=== PATIENT | female | born 1980 | race Caucasian/White ===

== ENCOUNTER → 2018-05-28 19:19 | Outpatient (CLI) | payer SELFPAY ==
[2018-06-01 12:59] LABS: HPV APTIMA, High Risk Negative (Negative)
== END ==
PROVIDERS: Family Provider Family Medicine; PCP Family Medicine; Visit Provider Obstetrics & Gynecology
DX: Z12.4 Encounter for screening for malignant neoplasm of cervix (principal); N93.0 Postcoital and contact bleeding
CPT/HCPCS: 87070; 87077; 87186; 87205; 88175; G0145

== ENCOUNTER → 2019-09-24 07:44 | Outpatient (CLI) | payer OTHER, SELFPAY ==
[2019-09-17 08:29] VITALS: BMI 32.8
--- NOTE | 2019-09-24 08:09 | US_ITS ---
STUDY: ULTRASOUND OF THE FEMALE PELVIS - COMPLETE REASON FOR EXAM: Female, 38 years old. GENERAL PELVIC PAIN X 1MONTH -- HX OF C SECTION LMP: August 09, 2019. TECHNIQUE: Transabdominal and Transvaginal TECHNICAL QUALITY: Adequate. COMPARISON: None. FINDINGS: The uterus is anteverted and is in a midline position. The uterus measures 9.5 cm x 5.6 cm x 3.9 cm. Normal uterine cervix. The endometrium measures 10 mm in thickness, and is . There is no demonstrated endometrial mass. There is no demonstrated myometrial mass. I.U.D. - The patient does not have an I.U.D. The right ovary is visualized. The right ovary measures 2.3 cm x 2.3 cm x 1.9 cm. There is no right ovarian cyst or ovarian mass. There is no visualized right adnexal mass or complex lesion. There is normal arterial and normal venous vascularity. The left ovary is visualized. The left ovary measures 3.7 cm x 3 cm x 2.9 cm. There is a 2.3 cm x 2.2 cm x 1.8 cm left ovarian cyst. There is no visualized left adnexal mass or complex lesion. There is normal arterial and normal venous vascularity. There is no fluid in the cul-de-sac. Polycystic ovary disease: No. US/Pelvic (Non ) IMPRESSION: 2.3 cm x 2.2 cm x 1.8 cm left ovarian cyst. Electronically Signed: Dimitri Neil, at 13:58 EST , Service support ,
--- NOTE | 2019-09-24 08:09 | US_ITS ---
STUDY: ULTRASOUND OF THE FEMALE PELVIS - COMPLETE REASON FOR EXAM: Female, 38 years old. GENERAL PELVIC PAIN X 1MONTH -- HX OF C SECTION LMP: August 09, 2019. TECHNIQUE: Transabdominal and Transvaginal TECHNICAL QUALITY: Adequate. COMPARISON: None. FINDINGS: The uterus is anteverted and is in a midline position. The uterus measures 9.5 cm x 5.6 cm x 3.9 cm. Normal uterine cervix. The endometrium measures 10 mm in thickness, and is . There is no demonstrated endometrial mass. There is no demonstrated myometrial mass. I.U.D. - The patient does not have an I.U.D. The right ovary is visualized. The right ovary measures 2.3 cm x 2.3 cm x 1.9 cm. There is no right ovarian cyst or ovarian mass. There is no visualized right adnexal mass or complex lesion. There is normal arterial and normal venous vascularity. The left ovary is visualized. The left ovary measures 3.7 cm x 3 cm x 2.9 cm. There is a 2.3 cm x 2.2 cm x 1.8 cm left ovarian cyst. There is no visualized left adnexal mass or complex lesion. There is normal arterial and normal venous vascularity. There is no fluid in the cul-de-sac. Polycystic ovary disease: No. US/Transvaginal Non- IMPRESSION: 2.3 cm x 2.2 cm x 1.8 cm left ovarian cyst. Electronically Signed: Dimitri Neil, at 13:58 EST , Service support ,
[2019-09-24 09:42] LABS: Absolute Lymphocyte Count 1.86 X10^3/uL (0.83-4.51); Absolute Neutrophil Count 3.9 X10^3/uL (2.0-7.7); Basophil# 0.02 X10^3/uL; Basophil% 0.3 % (0-1); Eosinophil# 0.15 X10^3/uL; Eosinophils% 2.3 % (0-5); Hemoglobin 12.5 g/dL (12.0-15.0); Lymphocyte # 1.86 X10^3/ul (4.0); Lymphocyte % 29.1 % (19-41); Mean Corp Hgb Conc 32.9 g/dL (32-36); Mean Corpuscular Volume 85.2 fL (81-99); Mean Platelet Vol. 11.7 fl (6.2-12.0); Monocyte# 0.46 X10^3/uL; Monocyte% 7.2 % (0-10); NRBC Flagged by Analyzer 0 % (0-5); Neutrophil # 3.87 X10^3/uL (2.7-7.7); Neutrophil % 60.6 % (47-70); Platelet Count 213 K/mm3 (150-450); RBC Distribution Width CV 12.4 % (11.6-14.6); RBC Distribution Width SD 38.3 fl (35.1-43.9); Red Blood Count 4.46 M/mm3 (4.2-5.4); White Blood Count 6.4 K/mm3 (4.4-11.0)
[2019-09-24 10:14] LABS: Thyroid Stim Hormone (TSH) 3.08 uIU/mL (0.358-3.74)
== END ==
PROVIDERS: Family Provider Family Medicine; PCP Family Medicine; Referring Provider Obstetrics & Gynecology; Visit Provider Obstetrics & Gynecology
DX: R10.2 Pelvic and perineal pain (principal); N93.9 Abnormal uterine and vaginal bleeding, unspecified
CPT/HCPCS: 36415; 76830; 76856; 84443; 85025; 93976

== ENCOUNTER → 2020-10-20 10:19 | Outpatient (CLI) | payer OTHER, SELFPAY ==
[2019-09-17 08:29] VITALS: BMI 32.8
--- NOTE | 2020-10-20 10:21 | STEWCON_ITS ---
Reason For Study: Chest Pain Stress Results Protocol: Nikolay Protocol WITH DEFINITY Maximum Predicted HR: 182 bpm Target HR: 155 bpm % Maximum Predicted HR: 90 % DurationHeart Rate Stage (mm:ss) (bpm) BP Comment Baseline 68 128/72No Chest Pain; 3 ML Diluted Definity Nikolay Protocol Stage I 3:00 109 124/78No Chest Pain Nikolay Protocol Stage II 3:00 127 162/70No Chest Pain Nikolay Protocol Stage III 3:00 153 186/72No Chest Pain; Mild Dyspnea Nikolay Protocol Stage IV 0:45 164 / Mild Chest Pressure; Mild Dyspnea Recovery 85 124/70No Chest Pain; No Dyspnea Stress Duration: 9:45 mm:ss Maximum Stress HR: 164 bpm METS: 12 Baseline Echocardiogram Findings Stress Echo Wall motion Data Resting WM Intermediate WM Stress WM Resting Wall Motion Wall Motion Stress All segments Normal. All segments Hyperkinetic. Ejection Fraction 55 %. Ejection Fraction 70 %. Stress Results Heart rate response: Appropriate Blood pressure response: Normal resting blood pressure-appropriate response Arrhythmias: There was a rare PVC and an isolated ventricular couplet during exercise Functional capacity: Good Stopped: Secondary to dyspnea. EKG Data Baseline ECG: Normal sinus rhythm. Peak exercise ECG: No obvious ECG changes. Symptoms with Stress The patient noted mild chest discomfort at peak exercise with spontaneous resolution in recovery. Interpretation Summary 1. Contrast injection performed 2. Negative (adequate) stress echocardiogram 3. Negative (adequate) ECG exercise tolerance test Ordering Physician: Yanique Zarate Referring Physician: Roldan Smith Performed By: Eze Cam RCS
== END ==
LOC: CVS 10:21
PROVIDERS: PCP Family Medicine; Referring Provider Family Medicine; Visit Provider Family Medicine
DX: R07.9 Chest pain, unspecified (principal)
CPT/HCPCS: 93017; 93350; Q9957; A4216; C8928

== ENCOUNTER 2021-04-07 16:06 | Outpatient (CLI) | payer OTHER, SELFPAY ==
[2019-09-17 08:29] VITALS: BMI 32.8
--- NOTE | 2021-04-07 16:24 | US_ITS ---
STUDY: FIRST TRIMESTER OBSTETRICAL ULTRASOUND REASON FOR EXAM: Female, 40 years old. Viability. well-being. LMP: 02/05/2021. TECHNIQUE: Transvaginal TECHNICAL QUALITY: Adequate. PRIOR ULTRASOUND: None. FINDINGS: There is visualization of a single gestational sac in a normal intrauterine position. The mean sac diameter (MSD) measures 9 mm, indicating an estimated gestational age (EGA) of 5 weeks, 4 days. The gestational sac shape is within normal limits. There is a visualized yolk sac. The yolk sac measures 4.5 mm. The placenta is non-visualized. There is visualization of a live embryo. The crown-rump length (CRL) measures 4.1 mm, indicating an estimated gestational age (EGA) of 6 weeks, 2 days. There is demonstrated cardiac activity with a heart rate of 90 bpm. The estimated gestation age (EGA) by LMP is 8 weeks, 5 days. The estimated date of delivery (ALTAF) by LMP is 11/12/2021. The estimated gestation age (EGA) by US is 5 weeks, 6 days. The estimated date of delivery (ALTAF) by US is 12/02/2021. The uterus measures 9.4 cm x 5.6 x 4.5 cm. There is no demonstrated uterine fibroid. The cervix is closed. The right ovary measures 3.5 cm x 3 cm x 2.9 cm. There is a 2.3 cm x 2.3 cm x 1.7 cm corpus luteum cyst. There is no visualized right adnexal mass or complex lesion. The left ovary measures 2.6 cm x 1 cm x 1.7 cm. There is no left ovarian cyst. There is no visualized left adnexal mass or complex lesion. There is no fluid in the cul de sac. US/Transvaginal w/Preg US IMPRESSION: Live intrauterine gestation with a mean gestational age of 5 weeks and 6 days. 2.3 cm x 2.3 cm x 1.7 cm right corpus luteum cyst. Electronically Signed: Dimitri Neil MD at 21:44 EDT , Service support ,
--- NOTE | 2021-04-07 17:30 | NURSING ---
1606 pt received on floor for blood draw for rhogam injection. 1620 pt sent to u/s for her appt. and to check back for rhogam injection. 1725 u/s called stating pt not waiting for rhogam injection states has to get back to work. Dr paz notified.
--- NOTE | 2021-04-08 09:57 | OB.TRI.PN ---
Progress Notes Date of Service: 04/07/21 Progress Note: Patient presents for injection only visit for rhogam. T&S done. Rhogam administered. Laboratory Studies: Laboratory Tests 04/07/21 Range/Units 16:18 Blood Type A NEGATIVE Antibody Screen NEGATIVE Charges/Coding Procedures Urinary/Genital [id number]: No Charge
== END 2021-04-07 16:20 | disposition home or self-care (01) ==
LOC: WPOUT 16:07 → WP 16:08
PROVIDERS: PCP Family Medicine; Visit Provider Obstetrics & Gynecology
DX: Z29.13 Encounter for prophylactic Rho(D) immune globulin (principal)
CPT/HCPCS: 36415; 76817; 86850; 86900; 86901

== ENCOUNTER → 2021-04-15 | Outpatient (CLI) | payer OTHER, SELFPAY ==
[2021-04-15 09:41] VITALS: BMI 32.5
[2021-04-15 13:57] LABS: Amphetamine Urine VISTA NEGATIVE (<1000 ng/mL); Barbiturate Urine VISTA NEGATIVE (< 200 ng/mL); Benzodiazepine Urine VISTA NEGATIVE (< 200 ng/mL); Cocaine Urine VISTA NEGATIVE (< 300 ng/mL); Ecstacy Urine VISTA NEGATIVE (< 500 ng/mL); Methadone Urine VISTA NEGATIVE (< 300 ng/mL); PCP Urine VISTA NEGATIVE (< 25 ng/mL); THC Urine VISTA NEGATIVE (< 50 ng/mL); Vista UDS pH Range 6
== END | disposition home or self-care (01) ==
PROVIDERS: PCP Family Medicine; Referring Provider Obstetrics & Gynecology; Visit Provider Obstetrics & Gynecology
DX: Z34.90 Encounter for supervision of normal pregnancy, unspecified, unspecified trimester (principal)
CPT/HCPCS: 80307; 87086; 87088

== ENCOUNTER → 2021-07-23 13:59 | Outpatient (CLI) | payer OTHER, SELFPAY ==
[2021-07-23 15:30] LABS: hCG Titer Quant., Serum 1793 mIU/mL (1-3)
== END ==
LOC: LAB 14:00
PROVIDERS: PCP Family Medicine; Referring Provider Obstetrics & Gynecology; Visit Provider Obstetrics & Gynecology
DX: O36.80X0 Pregnancy with inconclusive fetal viability, not applicable or unspecified (principal); Z3A.00 Weeks of gestation of pregnancy not specified; Z87.59 Personal history of other complications of pregnancy, childbirth and the puerperium
CPT/HCPCS: 36415; 84702

== ENCOUNTER → 2021-07-26 14:42 | Outpatient (CLI) | payer OTHER, SELFPAY ==
[2021-07-26 16:20] LABS: hCG Titer Quant., Serum 4578 mIU/mL (1-3)
== END ==
LOC: LAB 14:43
PROVIDERS: PCP Family Medicine; Referring Provider Obstetrics & Gynecology; Visit Provider Obstetrics & Gynecology
DX: O36.80X0 Pregnancy with inconclusive fetal viability, not applicable or unspecified (principal); Z3A.00 Weeks of gestation of pregnancy not specified; Z87.59 Personal history of other complications of pregnancy, childbirth and the puerperium
CPT/HCPCS: 36415; 84702

== ENCOUNTER → 2021-08-06 12:19 | Outpatient (CLI) | payer OTHER, SELFPAY ==
--- NOTE | 2021-08-06 12:26 | US_ITS ---
STUDY: FIRST TRIMESTER OBSTETRICAL ULTRASOUND REASON FOR EXAM: Female, 40 years old viability LMP: 06/18/2021. TECHNIQUE: Transvaginal TECHNICAL QUALITY: Adequate. PRIOR ULTRASOUND: None. FINDINGS: There is visualization of a single gestational sac in a normal intrauterine position. The mean sac diameter (MSD) measures 1.9 cm, indicating an estimated gestational age (EGA) of 6 weeks, 6 days. The gestational sac shape is within normal limits. There is a visualized yolk sac. The yolk sac measures 5.4 mm. The placenta is non-visualized. There is visualization of a live embryo. The crown-rump length (CRL) measures 9.4 mm, indicating an estimated gestational age (EGA) of 7 weeks, 0 days. There is demonstrated cardiac activity with a heart rate of 150 bpm. The estimated gestation age (EGA) by LMP is 7 weeks, 0 days. The estimated date of delivery (ALTAF) by LMP is 03/25/2022. The estimated gestation age (EGA) by US is 6 weeks, 6 days. The estimated date of delivery (ALTAF) by US is 03/26/2022. The uterus measures 11.3 cm x 6.6 x 5.4 cm. There is no demonstrated uterine fibroid. The cervix is closed. There is evidence of a 1.8 cm x 2 cm x 0.6 cm subchorionic bleed. The right ovary measures 2.4 cm x 1.6 cm x 2.1 cm. There is no right ovarian cyst. There is no visualized right adnexal mass or complex lesion. The left ovary measures 3.2 cm x 2 cm x 1.7 cm. There is no left ovarian cyst. There is no visualized left adnexal mass or complex lesion. There is no fluid in the cul de sac. US/Transvaginal w/Preg US IMPRESSION: Single live intrauterine gestation with a mean gestational age of 6 weeks and 6 days. 1.8 cm x 2 cm x 0.6 cm subchorionic bleed. Electronically Signed: Dimitri Neil MD at 14:10 EST , Service support ,
== END ==
PROVIDERS: PCP Family Medicine; Referring Provider Obstetrics & Gynecology; Visit Provider Obstetrics & Gynecology
DX: O36.80X0 Pregnancy with inconclusive fetal viability, not applicable or unspecified (principal); Z3A.01 Less than 8 weeks gestation of pregnancy; Z87.59 Personal history of other complications of pregnancy, childbirth and the puerperium
CPT/HCPCS: 76817

== ENCOUNTER 2021-08-19 22:07 | Emergency (ER) | payer OTHER, SELFPAY ==
[2021-08-19 22:08] VITALS: BP 157/70; PULSE 89; RESP 16; TEMP 36.4; O2SAT 99; BMI 34.6
[2021-08-19 22:14] VITALS: O2SAT 98
--- NOTE | 2021-08-19 22:36 | EKG12_ITS ---
Test Reason : SOB Blood Pressure : / mmHG Vent. Rate : 081 BPM Atrial Rate : 081 BPM P-R Int : 152 ms QRS Dur : 094 ms QT Int : 376 ms P-R-T Axes : 029 037 024 degrees QTc Int : 436 ms Normal sinus rhythm Normal ECG Confirmed by YOANDY DANIEL, KYLIE ([id number]), newspaper editor managing MICHAEL MACIAS ([id number]) on 08/23/2021 9:52:27 AM Referred By: PANCHO Confirmed By:CHARLOTTE PITT MD
[2021-08-19] MEDS: 0.9% Normal Saline 1,000 ML 999 ML IV (22:45)
[2021-08-19] MEDS: dexAMETHasone 10 MG/ML Vial IV (22:45)
[2021-08-19 22:50] LABS: Absolute Lymphocyte Count 0.63 X10^3/uL (0.83-4.51); Absolute Neutrophil Count 1.6 X10^3/uL (2.0-7.7); Eosinophil# 0.01 X10^3/uL; Eosinophils% 0.4 % (0-5); Hematocrit 34.5 % (37-47); Lymphocyte # 0.63 X10^3/ul (0.83-4.51); Lymphocyte % 26.1 % (19-41); Mean Corp Hgb Conc 34.8 g/dL (32-36); Mean Corpuscular Hgb 29.4 pg (27.0-32.0); Mean Corpuscular Volume 84.6 fL (81-99); Mean Platelet Vol. 11.4 fl (6.2-12.0); Monocyte# 0.18 X10^3/uL; Monocyte% 7.5 % (0-10); NRBC Flagged by Analyzer 0 % (0-5); Neutrophil # 1.58 X10^3/uL (2.7-7.7); Neutrophil % 65.6 % (47-70); Platelet Count 105 K/mm3 (150-450); RBC Distribution Width CV 12.8 % (11.6-14.6); RBC Distribution Width SD 39.6 fl (35.1-43.9); Red Blood Count 4.08 M/mm3 (4.2-5.4); White Blood Count 2.4 K/mm3 (4.4-11.0)
[2021-08-19 23:02] LABS: Anion Gap 8 (5-15); BUN 8 mg/dL (7-18); BUN/Creat Ratio 12.6 RATIO (10-20); Calcium,Total 8.7 mg/dL (8.5-10.1); Chloride 105 mmol/L (98-107); Creatinine, Serum 0.64 mg/dL (0.55-1.02); EST Glomerular Filtration Rate 110 mL/min (>60); Est Glom Filt Rate - Afr Amer 133 mL/min (>60); Estimated Creatinine Clearance 114.76 ml/min; Glucose 157 mg/dL (74-106); Magnesium 1.8 mg/dL (1.6-2.6); Potassium 3.5 mmol/L (3.5-5.1); Sodium Level 135 mmol/L (136-145)
[2021-08-20 00:15] VITALS: RESP 20; O2SAT 97
--- NOTE | 2021-08-20 00:28 | EDS_ITS ---
HPI History of Present Illness Chief Complaint: Shortness of Breath Narrative Narrative: Pt is a female who is about 8 weeks . She reports her kids have been sick and she has had symptoms for about 7 days. She states that she had an outpatient test that was positive for covid. She states that she is feeling more short of breath today and therefore comes to the ED for evaluation [facility] Medical History AMA (advanced maternal age) multigravida 35+ Asthma Depression HTN (hypertension) Rh negative state in antepartum period Home Medications fluoxetine 40 mg capsule 40 mg PO DAILY 04/05/21 [History Last Taken Unknown] prenat.vits,steve,syh-yfod-fpvpk 1 tab PO DAILY 04/05/21 [History Last Taken Unknown] albuterol sulfate [ProAir HFA] 2 puff INHALATION Q6H PRN #8.5 g 08/20/21 [Rx Last Taken Unknown] dexamethasone [Decadron] 6 mg PO DAILY 10 Days #10 tab 08/20/21 [Rx Last Taken Unknown] Allergy/AdvReac Type Severity Reaction Status Date / Time No Known Allergies Allergy Verified 08/19/21 22:07 Family History Father Hypertension Cancer lung-smoker Hyperlipidemia Mother Hypertension Arthritis Sister Seizures Surgical History delivery delivered History of Social History adopted: No household members: spouse and children number of children: 2 current occupational status: employed current occupation: [employer] pets and animals: Yes pets and animals: dog(s) sexually active: Yes Smoking Status: Never smoker alcohol intake: current details: social; not while substance use type: does not use caffeine: Yes what type of physical activity do you participate in: running frequency: 3-4 times per week seatbelt use: always do you feel safe at home: Yes additional social history: [employer] Patient works at [employer] in [facility] ROS ED Constitutional Constitutional ED: Reports chills and fever(s) ENT ENT ED: Reports rhinorrhea and sore throat Cardiovascular Cardiovascular: Denies chest pain Respiratory/Chest Respiratory/Chest: Reports cough, dyspnea and sputum Gastrointestinal Gastrointestinal: Reports nausea; Denies abdominal pain, diarrhea or vomiting Genitourinary Genitourinary ED: Denies dysuria Musculoskeletal Musculoskeletal: Reports myalgias Integumentary Denies rash Neurologic Neurologic: Denies headache(s) Hematologic/Lymphatic Hematologic/Lymphatic: Denies easy bleeding or easy bruising EXAM Physical Exam Const Vital Signs: 08/19/21 22:08 08/19/21 22:53 08/20/21 00:15 Temperature 97.5 F L Temperature Source Temporal Pulse Rate 89 Respiratory Rate 16 20 H Respiratory Effort Short of Breath Blood Pressure 157/70 H Blood Pressure Mean 99 Pulse Ox 99 97 Oxygen Delivery Method Room Air Room Air 08/20/21 00:39 Temperature Temperature Source Pulse Rate 74 Respiratory Rate 20 H Respiratory Effort Blood Pressure 150/60 H Blood Pressure Mean Pulse Ox 95 Oxygen Delivery Method Positive well nourished and well developed General Appearance ED: well developed HEENT Reports moist mucous membranes Eyes PERRL and EOMs intact bilaterally Neck supple Neck Narrative: + anterior cervical adenopathy Resp Resp Narrative: BS are diminished throughout with diffuse wheeze and rhonchi in the bases. Pt has mild accessory muscle use and tachypnea Cardio regular rate and regular rhythm GI normal to inspection, nondistended, normoactive bowel sounds, non-tender, non- distended and no masses Auscultation: normoactive bowel sounds Palpation: soft Extremity normal to inspection Extremity Narrative: Negative Dony's sign B/L Neuro oriented x3 and CN's II-XII intact bilaterally Sensorium / Orientation: alert Motor Exam: strength 5/5 throughout Psych mental status grossly normal Skin no rashes or lesions noted MDM MDM MDM Narrative Medical decision making narrative: Pt presented afebrile and without any hypoxia or severe resp distress. She had a positive outpatient covid test so i felt no need to repeat this. She also reports that her PCP is setting her up for monoclonal antibodies. basic blood work was obtained and display changes consistent with covid. Pt was ambulated in the room and had no desaturation. Therefore, as patient is not hypoxic at rest or with exertion I feel she can be discharged and treated on an outpatient basis Lab Data Attestation: I reviewed the patient's lab results. Labs: Laboratory Results - last 24 hr 08/19/21 08/19/21 22:40 22:40 WBC 2.4 L RBC 4.08 L Hgb 12.0 Hct 34.5 L MCV 84.6 MCH 29.4 MCHC 34.8 RDW Std Deviation 39.6 RDW Coeff of Bob 12.8 Plt Count 105 L MPV 11.4 Immature Gran % (Auto) 0.400 Neut % (Auto) 65.6 Lymph % (Auto) 26.1 Travis % (Auto) 7.5 Eos % (Auto) 0.4 Baso % (Auto) 0.0 Absolute Neuts (auto) 1.6 L Absolute Lymphs (auto) 0.63 L Nucleated RBC % 0 Sodium 135 L Potassium 3.5 Chloride 105 Carbon Dioxide 22.0 Anion Gap 8 BUN 8 Creatinine 0.64 Estim Creat Clear Calc 114.76 Est GFR (MDRD) Af Amer 133 Est GFR (MDRD) Non-Af 110 BUN/Creatinine Ratio 12.6 Glucose 157 H Calcium 8.7 Magnesium 1.8 Discharge Plan Triage Chief Complaint: Shortness of Breath ED Provider: Kevin Gilliland Dx/Rx/DC Orders Clinical Impression: COVID-19 Instructions: Coronavirus Disease 2019 (COVID-19): Caring for Yourself or Others Prescriptions: New dexamethasone [Decadron] 6 mg tablet 6 mg PO DAILY 10 Days Qty: 10 RF: 0 albuterol sulfate [ProAir HFA] 90 mcg/actuation HFA aerosol inhaler 2 puff inhalation Q6H PRN (Reason: shortness of breath or wheezing) Qty: 8.5 RF: 0 No Action prenat.vits,steve,now-zzol-htbgp Tablet 1 tab PO DAILY RF: 0 fluoxetine [Prozac] 40 mg capsule 40 mg PO DAILY RF: 0 Primary Care Provider: Yanique Zarate Referrals: Yanique Zarate MD [Primary Care Provider] - Disposition Disposition: Home, Self Care Discharge Date/Time: 08/20/21 00:40
[2021-08-20 00:39] VITALS: BP 150/60; PULSE 74; RESP 20; O2SAT 95
== END 2021-08-20 00:40 | disposition home or self-care (01) ==
PROVIDERS: Emergency Provider Emergency Medicine; PCP Family Medicine
DX: O98.511 Other viral diseases complicating pregnancy, first trimester (principal); O99.341 Other mental disorders complicating pregnancy, first trimester; U07.1 COVID-19; F32.A Depression, unspecified; Z3A.08 8 weeks gestation of pregnancy; Z79.899 Other long term (current) drug therapy
CPT/HCPCS: 80048; 83735; 85025; 93005; 94640; 96374; 99282; A4216

== ENCOUNTER 2021-08-21 16:34 | Emergency (ER) | payer OTHER, SELFPAY ==
[2021-08-21 16:35] VITALS: BP 153/76; PULSE 101; RESP 19; TEMP 38.5; O2SAT 98; BMI 33.1
[2021-08-21 16:38] VITALS: BP 153/76; PULSE 101; RESP 19; TEMP 38.5; O2SAT 98
[2021-08-21 18:12] LABS: Absolute Lymphocyte Count 0.82 X10^3/uL (0.83-4.51); Absolute Neutrophil Count 3.6 X10^3/uL (2.0-7.7); Hematocrit 37.9 % (37-47); Hemoglobin 12.7 g/dL (12.0-15.0); Lymphocyte # 0.82 X10^3/ul (0.83-4.51); Lymphocyte % 17.7 % (19-41); Mean Corp Hgb Conc 33.5 g/dL (32-36); Mean Corpuscular Hgb 28.5 pg (27.0-32.0); Mean Platelet Vol. 11.6 fl (6.2-12.0); Monocyte# 0.23 X10^3/uL; NRBC Flagged by Analyzer 0 % (0-5); Neutrophil # 3.56 X10^3/uL (2.7-7.7); Neutrophil % 77.1 % (47-70); Platelet Count 145 K/mm3 (150-450); RBC Distribution Width CV 12.9 % (11.6-14.6); RBC Distribution Width SD 39.8 fl (35.1-43.9); Red Blood Count 4.46 M/mm3 (4.2-5.4); White Blood Count 4.6 K/mm3 (4.4-11.0)
[2021-08-21 18:24] LABS: Anion Gap 7 (5-15); BUN 10 mg/dL (7-18); BUN/Creat Ratio 14.9 RATIO (10-20); Chloride 104 mmol/L (98-107); Creatinine, Serum 0.67 mg/dL (0.55-1.02); EST Glomerular Filtration Rate 104 mL/min (>60); Est Glom Filt Rate - Afr Amer 126 mL/min (>60); Estimated Creatinine Clearance 109.63 ml/min; Glucose 93 mg/dL (74-106); Potassium 3.9 mmol/L (3.5-5.1); Sodium Level 136 mmol/L (136-145)
--- NOTE | 2021-08-21 18:33 | EX.ED.DYSGE1 ---
HPI History of Present Illness Chief Complaint: Nausea/Vomiting Informant: patient Onset/Context/Timing Onset: Days Context: Gradual Onset Timing: Intermittent Current Severity: Mild Maximum Severity: Mild Narrative Narrative: 40-year-old female G4, P2 Ab1 with that being a miscarriage. Currently 9 weeks . Has had a pelvic ultrasound showing a single live IUP. States that on she started having Covid symptoms and tested positive on the at the [facility]. She has had nausea and vomiting last several days. Fever as high as 102 and a cough. Mild shortness of breath. No hemoptysis. And to states she does not feel well. Denies any dysuria. She is currently on Decadron and proair. She sees [facility] physician Dr. Selena Guzman. Prior similar symptoms: Yes Recent Illness/Hospitalization: No PFSH PFSH Medical History AMA (advanced maternal age) multigravida 35+ Asthma Depression HTN (hypertension) Rh negative state in antepartum period Home Medications fluoxetine 40 mg capsule 40 mg PO DAILY 04/05/21 [History Last Taken Unknown] prenat.vits,steve,uhv-cttq-apnbx 1 tab PO DAILY 04/05/21 [History Last Taken Unknown] albuterol sulfate [ProAir HFA] 2 puff INHALATION Q6H PRN #8.5 g 08/20/21 [Rx Last Taken Unknown] dexamethasone [Decadron] 6 mg PO DAILY 10 Days #10 tab 08/20/21 [Rx Last Taken Unknown] ondansetron 4 mg PO Q6H PRN #10 tab 08/21/21 [Rx Last Taken Unknown] Allergy/AdvReac Type Severity Reaction Status Date / Time No Known Allergies Allergy Verified 08/21/21 16:34 Family History Father Hypertension Cancer lung-smoker Hyperlipidemia Mother Hypertension Arthritis Sister Seizures Surgical History delivery delivered History of Social History adopted: No household members: spouse and children number of children: 2 current occupational status: employed current occupation: [employer] pets and animals: Yes pets and animals: dog(s) sexually active: Yes Smoking Status: Never smoker alcohol intake: current details: social; not while substance use type: does not use caffeine: Yes what type of physical activity do you participate in: running frequency: 3-4 times per week seatbelt use: always do you feel safe at home: Yes additional social history: [employer] Patient works at [employer] in [facility] ROS ED ROS Narrative Fever, nausea and vomiting myalgias and cough. Review of Systems ROS Unobtainable: Denies due to encephalopathy Constitutional Constitutional ED: Reports chills and fever(s) Eyes Eyes: Denies change in vision ENT ENT ED: Denies ear pain, rhinorrhea or sore throat Cardiovascular Cardiovascular: Denies chest pain Respiratory/Chest Respiratory/Chest: Reports cough and dyspnea Gastrointestinal Gastrointestinal: Reports nausea and vomiting; Denies abdominal pain Genitourinary Genitourinary ED: Denies dysuria or hematuria Musculoskeletal Musculoskeletal: Reports myalgias Integumentary Denies rash Neurologic Neurologic: Denies headache(s) Psychiatric Psychiatric: Denies depression Endocrine Endocrinology: Denies polyuria Allergic/Immunologic Allergic/Immunologic ED: Denies urticaria EXAM Physical Exam Narrative Exam Narrative: 14-year-old female vital signs stable she has a temperature of 101.3. She does not look septic or toxic. HEENT exam mild dry mucous membranes otherwise unremarkable. Neck nontender. No lymphadenopathy. No meningismus. Lungs clear to auscultation bilaterally. Heart regular rhythm rate about 100 no murmur. Abdomen soft nondistended normal bowel sounds no peritoneal signs. Extremities moves all 4. Nontender no edema. Back nontender. Neurologically she is awake alert with no focal motor deficits. Const Vital Signs: 08/21/21 16:35 08/21/21 16:38 08/21/21 18:49 Temperature 101.3 F H 101.3 F H 102.3 F H Temperature Source Oral Oral Oral Pulse Rate 101 H 101 H 96 Respiratory Rate 19 H 19 H 22 H Blood Pressure 153/76 H 153/76 H 138/72 H Blood Pressure Mean 101 101 94 Pulse Ox 98 98 97 Oxygen Delivery Method Room Air Room Air Room Air 08/21/21 20:49 08/21/21 22:29 Temperature 99.2 F H Temperature Source Oral Pulse Rate 84 Respiratory Rate 15 Blood Pressure 126/70 H Blood Pressure Mean 88 Pulse Ox 97 98 Oxygen Delivery Method Room Air Room Air Positive well nourished and well developed; Negative for obese, cachectic, contractures or unkempt General Appearance ED: well developed and NAD; Negative for unkempt, cachectic, contractures, cyanotic or diaphoretic Nutritional Appearance: Negative for cachectic or obese HEENT Reports dry mucous membranes Negative for trauma or tenderness Mouth ED: Yes dry mucous membranes Mouth: dry mucous membranes Eyes PERRL and EOMs intact bilaterally Neck no lymphadenopathy, supple and no JVD General: Negative for tenderness Chest Wall inspection of chest normal and palpation of chest normal Resp normal respiratory effort and clear to auscultation bilaterally Effort and Inspection: pain with movement Auscultation: Negative for rales, rhonchi or wheezes Cardio regular rate, regular rhythm, S1 normal heart sound, S2 normal heart sound and no murmurs GI normal to inspection, nondistended, normoactive bowel sounds, non-tender, non-distended and no masses Auscultation: normoactive bowel sounds Palpation: soft; Negative for tender, guarding or rebound tenderness present Back/Spine no CVA tenderness Extremity normal to inspection General Extremety ED: Negative for edema or tenderness General Extremity: Negative for edema Neuro oriented x3 Sensorium / Orientation: alert; Negative for orientation impaired, lethargic or stuporous Motor Exam: strength 5/5 throughout Psych mental status grossly normal Appearance: Negative for unkempt Mood & Affect: Negative for depressed Skin no rashes or lesions noted and no wounds MDM MDM MDM Narrative Medical decision making narrative: 40-year-old female with Covid on her 10-day. Received IV fluids and Zofran. Screening labs, urinalysis and chest x-ray to be obtained she will be shielded for the chest x-ray. Repeat exam at 1040 patient is doing well. She is resting comfortably. Her vital signs are stable she is not hypoxic. She and I went over her test results. She is already day 10 of Covid. She is really not in the window for monoclonal antibodies and Monday would be day 12. She is already on Decadron she will continue that fluids and rest and follow-up as needed. Return if worse. Lab Data Attestation: I reviewed the patient's lab results. Lab results narrative: CBC shows a white count of 4.6. Hemoglobin 12.7. Electrolytes unremarkable gap is 7 normal BUN 10 creatinine 0.6. Glucose 93. Urinalysis shows no white or red cells 5-10 epithelial cells 2+ bacteria no nitrates. Labs: Laboratory Results - last 24 hr 08/21/21 08/21/21 08/21/21 18:00 18:00 21:23 WBC 4.6 RBC 4.46 Hgb 12.7 Hct 37.9 MCV 85.0 MCH 28.5 MCHC 33.5 RDW Std Deviation 39.8 RDW Coeff of Bob 12.9 Plt Count 145 L MPV 11.6 Immature Gran % (Auto) 0.200 Neut % (Auto) 77.1 H Lymph % (Auto) 17.7 L Haines % (Auto) 5.0 Eos % (Auto) 0.0 Baso % (Auto) 0.0 Absolute Neuts (auto) 3.6 Absolute Lymphs (auto) 0.82 L Nucleated RBC % 0 Sodium 136 Potassium 3.9 Chloride 104 Carbon Dioxide 25.0 Anion Gap 7 BUN 10 Creatinine 0.67 Estim Creat Clear Calc 109.63 Est GFR (MDRD) Af Amer 126 Est GFR (MDRD) Non-Af 104 BUN/Creatinine Ratio 14.9 Glucose 93 Calcium 9.0 Urine Color Yellow Urine Clarity Clear Urine pH 6.5 Ur Specific [place] 1.010 Urine Protein 15 H Urine Glucose (UA) Normal Urine Ketones 5 H Urine Occult Blood Negative Urine Nitrite Negative Urine Bilirubin Negative Urine Urobilinogen Normal Ur Leukocyte Esterase 25 H Urine RBC 0-5 SEEN Urine WBC 0-5 SEEN Ur Squamous Epith Cells 5-10 SEEN Urine Bacteria 2+ Urine Mucus 0 SEEN Radiography Chest X-Ray - ED: 1 View, Read by ED Physician, Right Infiltrate and Left Infiltrate Diagnostic Testing: Clinical Impression(s) from Imaging Studies Chest X-Ray 08/21/21 18:40 IMPRESSION: Acute Covid pneumonia. Electronically Signed: Fermín Nagy MD at 20:18 EST Tel , Service support , Chest x-ray, portable, single view interpreted by myself and the radiologist shows bilateral Covid infiltrates. Consistent with Covid pneumonitis. Discharge Plan Triage Chief Complaint: Nausea/Vomiting ED Provider: Padgett,Benjamin Dx/Rx/DC Orders Clinical Impression: COVID-19, Instructions: Human Coronaviruses Prescriptions: New ondansetron 4 mg tablet,disintegrating 4 mg PO Q6H PRN (Reason: nausea and vomiting) Qty: 10 RF: 0 No Action prenat.vits,steve,wro-aptw-ovmki Tablet 1 tab PO DAILY RF: 0 fluoxetine [Prozac] 40 mg capsule 40 mg PO DAILY RF: 0 dexamethasone [Decadron] 6 mg tablet 6 mg PO DAILY 10 Days Qty: 10 RF: 0 albuterol sulfate [ProAir HFA] 90 mcg/actuation HFA aerosol inhaler 2 puff inhalation Q6H PRN (Reason: shortness of breath or wheezing) Qty: 8.5 RF: 0 Primary Care Provider: Yanique Zarate Referrals: Yanique Zarate MD [Primary Care Provider] - Selena Guzman MD [STAFF PHYSICIAN] - 1 Week if not improving Activity Restrictions/Additional Instructions: Plenty of fluids and rest. Tylenol as needed for fever and body aches. Continue your daily Decadron. Zofran as needed for nausea. Follow-up with your [facility] MANAGER if not improving return emergency department if feeling a lot worse. Disposition Disposition: Home, Self Care
--- NOTE | 2021-08-21 18:40 | RAD_ITS ---
STUDY: X-RAY CHEST REASON FOR EXAM: Female, 40 years old. covid nausea and vomiting TECHNIQUE: Frontal portable view of the chest COMPARISON: None. FINDINGS: There are multifocal ill-defined airspace opacities bilaterally. Pulmonary volumes are low. There is no pneumothorax, cardiac megaly or effusions. RAD/Chest 1 View (Portable) IMPRESSION: Acute Covid pneumonia. Electronically Signed: Fermín Nagy MD at 20:18 EST Tel , Service support ,
[2021-08-21] MEDS: 0.9% Normal Saline 1,000 ML 1000 ML IV (18:46)
[2021-08-21] MEDS: Ondansetron 4 MG/2 ML Vial IV ×2 (18:46→21:39)
[2021-08-21 18:49] VITALS: BP 138/72; PULSE 96; RESP 22; TEMP 39.1; O2SAT 97
[2021-08-21] MEDS: Acetaminophen 500 MG Tablet 1000 MG PO (19:13)
[2021-08-21 20:49] VITALS: TEMP 37.3; O2SAT 97
[2021-08-21 21:30] LABS: Mucous, Urine 0 SEEN /hpf (<or=2+)
[2021-08-21 22:03] LABS: Color, Urine Yellow (Yellow); Glucose, Dipstick Normal (Normal); Ketone-Dipstick 5 mg/dl (Negative); Leukocyte Esterase-Dipstick 25 /ul (Negative); Nitrite-Dipstick Negative (Negative); Occult Blood-Urine Negative /ul (Negative); Protein-Dipstick 15 mg/dl (Negative); Urine Bilirubin Dipstick Negative (Negative); Urine Clarity Clear (Clear); Urine Urobilinogen Normal (Normal); Urine pH 6.5 (5.0 - 8.0)
[2021-08-21 22:29] VITALS: BP 126/70; PULSE 84; RESP 15; O2SAT 98
[2021-08-21 22:29] LABS: Bacteria 2+ /hpf (None Seen); Red Blood Cells-Urine 0-5 SEEN /hpf (0-5); Squamous Epithelial Cells - UA 5-10 SEEN /hpf (5-10); White Blood Cells 0-5 SEEN /hpf (0-5)
[2021-08-21 22:56] VITALS: BP 121/73; PULSE 83; RESP 16; O2SAT 99
== END 2021-08-21 22:57 | disposition home or self-care (01) ==
PROVIDERS: Emergency Provider Emergency Medicine; PCP Family Medicine
DX: O98.511 Other viral diseases complicating pregnancy, first trimester (principal); O99.341 Other mental disorders complicating pregnancy, first trimester; O26.891 Other specified pregnancy related conditions, first trimester; J45.909 Unspecified asthma, uncomplicated; U07.1 COVID-19; F32.A Depression, unspecified; Z79.899 Other long term (current) drug therapy; Z3A.09 9 weeks gestation of pregnancy
CPT/HCPCS: 71045; 80048; 81001; 85025; 96361; 96374; 96376; 99283; J7030; A4216; J2405

== ENCOUNTER → 2021-08-25 12:00 | Outpatient (CLI) | payer OTHER, SELFPAY ==
[2021-08-26 22:07] LABS: Chlamydia By Nucleic Acid AMP Negative (Negative)
[2021-08-27 16:09] LABS: Gonococcus By Nucleic Acid AMP Negative (Negative)
[2021-08-27 16:18] LABS: HPV APTIMA, High Risk Negative (Negative)
== END ==
LOC: LAB 12:02
PROVIDERS: PCP Family Medicine; Referring Provider Obstetrics & Gynecology; Visit Provider Obstetrics & Gynecology
DX: O09.90 Supervision of high risk pregnancy, unspecified, unspecified trimester (principal); Z3A.00 Weeks of gestation of pregnancy not specified
CPT/HCPCS: 87491; 87591; 87624; 88175; G0145

== ENCOUNTER → 2021-09-16 11:06 | Outpatient (CLI) | payer OTHER, SELFPAY ==
[2021-09-16 11:52] LABS: Absolute Lymphocyte Count 1.17 X10^3/uL (0.83-4.51); Absolute Neutrophil Count 3.4 X10^3/uL (2.0-7.7); Basophil# 0.02 X10^3/uL; Basophil% 0.4 % (0-1); Eosinophil# 0.13 X10^3/uL; Eosinophils% 2.6 % (0-5); Hematocrit 31.2 % (37-47); Hemoglobin 10.8 g/dL (12.0-15.0); Lymphocyte # 1.17 X10^3/ul (0.83-4.51); Lymphocyte % 23.1 % (19-41); Mean Corp Hgb Conc 34.6 g/dL (32-36); Mean Corpuscular Hgb 29.4 pg (27.0-32.0); Mean Platelet Vol. 10.7 fl (6.2-12.0); Monocyte# 0.34 X10^3/uL; Monocyte% 6.7 % (0-10); NRBC Flagged by Analyzer 0 % (0-5); Neutrophil # 3.38 X10^3/uL (2.7-7.7); Neutrophil % 66.8 % (47-70); Platelet Count 162 K/mm3 (150-450); RBC Distribution Width SD 39.7 fl (35.1-43.9); Red Blood Count 3.67 M/mm3 (4.2-5.4); White Blood Count 5.1 K/mm3 (4.4-11.0)
[2021-09-16 12:16] LABS: Glucose Challenge Gest 1H 50g 194 mg/dL (70-140)
[2021-09-16 12:38] LABS: NATERA MAILED SPECIMEN
[2021-09-16 12:57] LABS: HIV - WCH Non-Reactive (Nonreactive); Hepatitis B Surface Antigen Non-Reactive (Nonreactive); Hepatitis C Antibody Non-Reactive (Nonreactive); Rubella IgG Reactive (Nonreactive); Syphilis Antibodies Non-reactive
== END ==
LOC: PAVLAB 11:07
PROVIDERS: PCP Family Medicine; Referring Provider Obstetrics & Gynecology; Visit Provider Obstetrics & Gynecology
DX: O09.521 Supervision of elderly multigravida, first trimester (principal); O99.211 Obesity complicating pregnancy, first trimester; E66.9 Obesity, unspecified; Z3A.00 Weeks of gestation of pregnancy not specified
CPT/HCPCS: 36415; 82950; 85025; 86703; 86762; 86780; 86803; 86850; 86900; 86901; 87340

== ENCOUNTER 2021-09-29 07:02 | Outpatient (CLI) | payer OTHER, SELFPAY ==
[2021-09-29 08:10] LABS: Glucose GTT-Gestation. Fasting 126 mg/dL (<105)
[2021-09-29 09:35] LABS: Glucose GTT-Gestational 1 Hr 206 mg/dL (<190)
[2021-09-29 11:10] LABS: Glucose GTT-Gestational 2 Hr 132 mg/dL (<165)
[2021-09-29 11:19] LABS: Glucose GTT-Gestational 3 Hr 94 L (<145)
== END 2021-09-29 23:59 | disposition short-term general hospital (02) ==
LOC: LAB 07:02
PROVIDERS: PCP Family Medicine; Referring Provider Nurse Practitioner Women's Health; Visit Provider Nurse Practitioner Women's Health
DX: Z13.1 Encounter for screening for diabetes mellitus (principal)
CPT/HCPCS: 36415; 82951; 82952

== ENCOUNTER 2021-10-08 12:35 | Outpatient (CLI) | payer OTHER, SELFPAY ==
[2021-10-08 13:25] LABS: Protein, Urine (Random) 7.2 mg/dL (<11.9); Protein:Creat Ratio 186 mg/g CRE (0-200)
== END 2021-10-08 23:59 | disposition short-term general hospital (02) ==
LOC: LABSPEC 12:37
PROVIDERS: PCP Family Medicine; Visit Provider Obstetrics & Gynecology
DX: O24.319 Unspecified pre-existing diabetes mellitus in pregnancy, unspecified trimester (principal); O09.529 Supervision of elderly multigravida, unspecified trimester; O16.3 Unspecified maternal hypertension, third trimester; Z3A.00 Weeks of gestation of pregnancy not specified
CPT/HCPCS: 82570; 84156

== ENCOUNTER 2021-10-12 09:35 | Outpatient (RCR) | payer OTHER, SELFPAY | END 2021-10-18 23:59 | disposition home or self-care (01) | LOC: DC 09:35 | PROVIDERS: PCP Family Medicine; Visit Provider Nurse Practitioner Women's Health | DX: I10 Essential (primary) hypertension (principal); Z71.3 Dietary counseling and surveillance; O24.419 Gestational diabetes mellitus in pregnancy, unspecified control ==

== ENCOUNTER 2021-10-12 10:29 | Outpatient (CLI) | payer OTHER, SELFPAY ==
[2021-10-12 12:05] LABS: ALB/GLOB Ratio 0.8 RATIO (0.9-2.4); AST(SGOT) 11 U/L (15-37); Alanine Aminotransfer ALT/SGPT 22 U/L (13-56); Albumin, Serum 3.2 g/dL (3.2-5.0); Alkaline Phosphatase 51 U/L (45-117); Anion Gap 6 (5-15); BUN 10 mg/dL (7-18); BUN/Creat Ratio 19.9 RATIO (10-20); Calcium,Total 8.7 mg/dL (8.5-10.1); Chloride 107 mmol/L (98-107); EST Glomerular Filtration Rate 145 mL/min (>60); Est Glom Filt Rate - Afr Amer 175 mL/min (>60); Globulin 4.1 g/dL (2.2-4.2); Glucose 91 mg/dL (74-106); Potassium 4.1 mmol/L (3.5-5.1); Protein, Total 7.3 g/dL (6.4-8.2); Sodium Level 136 mmol/L (136-145); Thyroid Stim Hormone (TSH) 2.04 uIU/mL (0.358-3.74)
== END 2021-10-12 23:59 | disposition short-term general hospital (02) ==
PROVIDERS: PCP Family Medicine; Referring Provider Obstetrics & Gynecology; Visit Provider Obstetrics & Gynecology
DX: O09.90 Supervision of high risk pregnancy, unspecified, unspecified trimester (principal); Z3A.00 Weeks of gestation of pregnancy not specified
CPT/HCPCS: 36415; 80053; 84443

== ENCOUNTER 2021-11-05 11:30 | Outpatient (CLI) | payer OTHER, SELFPAY | END 2021-11-05 23:59 | disposition home or self-care (01) | PROVIDERS: PCP Family Medicine; Referring Provider Obstetrics & Gynecology; Visit Provider Obstetrics & Gynecology | DX: O99.891 Other specified diseases and conditions complicating pregnancy (principal); N89.8 Other specified noninflammatory disorders of vagina; Z3A.00 Weeks of gestation of pregnancy not specified | CPT/HCPCS: 36415; 87070; 87205 ==

== ENCOUNTER 2021-11-05 14:17 | Outpatient (CLI) | payer OTHER, SELFPAY | END 2021-11-05 23:59 | disposition home or self-care (01) | LOC: LABSPEC 12-01 14:17 | PROVIDERS: PCP Family Medicine; Visit Provider Obstetrics & Gynecology | DX: Z00.00 Encounter for general adult medical examination without abnormal findings (principal) | CPT/HCPCS: 87070; 87205 ==

== ENCOUNTER → 2022-01-13 | Outpatient (CLI) | payer OTHER, SELFPAY ==
[2022-01-13 12:01] LABS: Absolute Lymphocyte Count 1.42 X10^3/uL (0.83-4.51); Absolute Neutrophil Count 5.2 X10^3/uL (2.0-7.7); Basophil# 0.03 X10^3/uL; Basophil% 0.4 % (0-1); Eosinophil# 0.13 X10^3/uL; Eosinophils% 1.8 % (0-5); Lymphocyte # 1.42 X10^3/ul (0.83-4.51); Lymphocyte % 19.5 % (19-41); Mean Corp Hgb Conc 34.4 g/dL (32-36); Mean Corpuscular Hgb 29.8 pg (27.0-32.0); Mean Corpuscular Volume 86.7 fL (81-99); Mean Platelet Vol. 11.4 fl (6.2-12.0); Monocyte# 0.47 X10^3/uL; Monocyte% 6.4 % (0-10); NRBC Flagged by Analyzer 0 % (0-5); Neutrophil # 5.21 X10^3/uL (2.7-7.7); Neutrophil % 71.4 % (47-70); Platelet Count 167 K/mm3 (150-450); RBC Distribution Width CV 13.5 % (11.6-14.6); RBC Distribution Width SD 42.2 fl (35.1-43.9); Red Blood Count 3.69 M/mm3 (4.2-5.4); White Blood Count 7.3 K/mm3 (4.4-11.0)
== END | disposition home or self-care (01) ==
LOC: PAVLAB 11:40
PROVIDERS: Obstetrics & Gynecology; PCP Family Medicine; Referring Provider Nurse Practitioner Women's Health; Visit Provider Nurse Practitioner Women's Health
DX: O26.899 Other specified pregnancy related conditions, unspecified trimester (principal); Z67.91 Unspecified blood type, Rh negative
CPT/HCPCS: 36415; 85025; 86850; 86900; 86901

== ENCOUNTER → 2022-02-02 | Outpatient (CLI) | payer OTHER, SELFPAY ==
--- NOTE | 2022-02-02 08:47 | US_ITS ---
STUDY: SECOND AND THIRD TRIMESTER OBSTETRICAL ULTRASOUND REASON FOR EXAM: Female, 41 years old . growth. LMP: 06/18/2021. TECHNIQUE: Transabdominal TECHNICAL QUALITY: Adequate. PRIOR ULTRASOUND: None. FINDINGS: There is a single intrauterine fetus. The fetus is in a cephalic presentation. There is demonstrated cardiac activity with a heart rate of 122 bpm. There is a normal amniotic fluid volume. The largest amniotic fluid pocket measures 3.0 cm. The amniotic fluid index (ROBERTO) is 9.74 cm. The placenta is posterior in location and is not low lying. There are Grade 1 placental changes. The cervix measures 3.0 in length. The adnexal regions are not visualized. BIOMETRY: BPD: 8.5 cm: 34 weeks, 1 days HC: 30.7 cm: 34 weeks, 1 days AC: 29.93 cm: 33 weeks, 6 days FL: 6.32 cm: 32 weeks, 4 days CI: 83% FL/BPD: 74% FL/HC: FL/AC: 21% HC/AC: 1.03 age by current US: 33 weeks, 1 days. ALTAF by current US: 03/22/2022. Estimated weight: 2260 grams, +/- 339 grams, 71 %. age by prior US: 32 weeks, 4 days. ALTAF by prior US: 03/26/2022. Age by LMP: 32 weeks, 5 days. ALTAF by LMP: 03/25/2022. US/OB Limited With Biometrics IMPRESSION: Single live intrauterine gestation with mean gestational age of 32 weeks and 4 days. The measurements obtained today fall within normal expected range. Electronically Signed: Dimitri Neil MD at 10:37 EDT ,
== END | disposition home or self-care (01) ==
PROVIDERS: PCP Family Medicine; Visit Provider Nurse Practitioner Women's Health
DX: O98.519 Other viral diseases complicating pregnancy, unspecified trimester (principal); U07.1 COVID-19
CPT/HCPCS: 76816

== ENCOUNTER → 2022-03-02 | Outpatient (CLI) | payer OTHER, SELFPAY ==
--- NOTE | 2022-03-02 09:09 | US_ITS ---
STUDY: SECOND AND THIRD TRIMESTER OBSTETRICAL ULTRASOUND REASON FOR EXAM: Female, 41 years old . growth. Gestational diabetes. LMP: 06/18/2021. TECHNIQUE: Transabdominal TECHNICAL QUALITY: Adequate. PRIOR ULTRASOUND: Comparison is made with prior study dated 02/02/2022. FINDINGS: There is a single intrauterine fetus. The fetus is in a cephalic presentation. There is demonstrated cardiac activity with a heart rate of 129 bpm. There is a normal amniotic fluid volume. The largest amniotic fluid pocket measures 5.5 cm. The amniotic fluid index (ROBERTO) is 70 cm. The placenta is posterior in location and is not low lying. There are Grade 1 placental changes. The cervix measures 3.5 in length. The adnexal regions are not visualized. BIOMETRY: BPD: 9.08 cm: 36 weeks, 5 days HC: 33.29 cm: 38 weeks, 0 days AC: 33.42 cm: 37 weeks, 2 days FL: 7.02 cm: 36 weeks, 0 days CI: 80% FL/BPD: 77% FL/HC: FL/AC: 21% HC/AC: 1.0 age by current US: 37 weeks, 2 days. ALTAF by current US: 03/21/2022. Estimated weight: 3098 grams, +/- 465 grams, 63 %. age by prior US: 37 weeks, 1 days. ALTAF by prior US: 03/22/2022. Age by LMP: 36 weeks, 5 days. ALTAF by LMP: 03/25/2022. US/OB Limited With Biometrics IMPRESSION: Single live intrauterine gestation with a mean gestational age of 37 weeks and 1 day. The measurements obtained today following within the normal expected range. Electronically Signed: Dimitri Neil MD at 10:20 EDT ,
== END | disposition home or self-care (01) ==
PROVIDERS: PCP Family Medicine; Referring Provider Nurse Practitioner Women's Health; Visit Provider Nurse Practitioner Women's Health
DX: O98.513 Other viral diseases complicating pregnancy, third trimester (principal); U07.1 COVID-19; Z3A.37 37 weeks gestation of pregnancy
CPT/HCPCS: 76816

== ENCOUNTER 2022-03-11 09:40 | Inpatient (IN) | payer OTHER, SELFPAY ==
[2022-03-11] VITALS (17 sets, daily range): BP systolic 98–155; BP diastolic 54–94; PULSE 66–94; RESP 16–18; TEMP 36.1–36.8; O2SAT 97–100; BMI 34.9
--- NOTE | 2022-03-11 08:40 | HP.PCM.OB_ITS ---
HPI - General HPI Narrative JAY BRADLEY, is a 41 y/o @ 38 weeks who presents to L&D for a repeat section. She is a type 2 DM on insulin. She also has chronic hypertension on cozarr prior to . She desires permanent sterilization. Maternal Data Information ALTAF Calculator Estimated Delivery Date Method Current WG Current Estimate 03/25/22 LMP (Certain) 38w 0d Other Estimates 03/25/22 Ultrasound #1 38w 0d 03/19/22 Ultrasound #2 38w 6d PFSH [facility] Medical History (Updated 03/04/22 @ 11:37 by Olena Levin) AMA (advanced maternal age) multigravida 35+ Asthma Depression Gestational diabetes HTN (hypertension) Rh negative state in antepartum period Home Medications fluoxetine 40 mg capsule (Prozac) 40 mg PO DAILY 04/05/21 [History Last Taken Unknown] prenat.vits,steve,mir-cwle-mvjnc 1 tab PO DAILY 04/05/21 [History Last Taken Unknown] ondansetron 4 mg disintegrating tablet 4 mg PO Q6H PRN nausea and vomiting #10 tabs 08/21/21 [Rx Last Taken Unknown] aspirin 81 mg tablet,delayed release 81 mg PO DAILY 09/07/21 [History Last Taken Unknown] blood sugar diagnostic (Truetrack Test) #100 ea 09/29/21 [Rx Last Taken Unknown] blood-glucose meter (Truetrack Blood Glucose System) #1 ea 09/29/21 [Rx Last Taken Unknown] metformin 1,000 mg tablet 1,000 mg PO DAILY #30 tabs 10/11/21 [Rx Last Taken Unknown] Allergy/AdvReac Type Severity Reaction Status Date / Time No Known Allergies Allergy Verified 03/04/22 11:36 Family History Father Hypertension Cancer lung-smoker Hyperlipidemia Mother Hypertension Arthritis Sister Seizures Surgical History (Updated 03/04/22 @ 12:26 by Barbara Mcclellan) History of Social History adopted: No household members: spouse and children number of children: 2 current occupational status: employed 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 pets and animals: Yes pets and animals: dog(s) sexually active: Yes Smoking Status: Never smoker alcohol intake: current details: social; not while substance use type: does not use caffeine: Yes what type of physical activity do you participate in: running frequency: 3-4 times per week seatbelt use: always do you feel safe at home: Yes additional social history: [facility] Patient works at [employer] in [place] History 4 Elective abortions Hx Para 2 Spontaneous abortions 1 Hx # Term Pregnancies Ectopic pregnancies Hx # Pregnancies Multiple births # of living children 2 Past Pregnancies Del. Date Name GA/Weeks Outcome Route Bth Weight Gen Labor Lgth Anesthesia Del Locatn Provider FOB Unknown 2009 Marilin 39 live - full term 6lbs Femal e epidural [facility] Unknown 2013 Suleiman 39 live - full term 8lbs Male 0 spinal [facility] 04/15/21 6 spontaneous Delivery Date: Last Updated by: Rama Pak RIVER EXPEDITION GUIDE, RIVER EXPEDITION GUIDE-C distress Visit Details Expected Delivery Route/Plan RLTCS at 38 Plans Covid status: positive recommended vaccination Flu vaccine: given Tdap vaccine: given Rhogam: given LARC form signed: yes Problem list reviewed and updated with the most current plan of care details and appropriate orders placed. Relevant counseling for the gestational age provided. Continue routine care and follow up unless otherwise noted in visit notes/problem list details OB Flowsheet Initial Weight: 220 lb Date -?-?-?-?-?-?-?-?-?-?-?-?- EGA Weight BP Urine Prot -?-?-?-?-?-?-?-?-?-?-?-?- Glucose FHR FuHt Pres Dilation -?-?-?-?-?-?-?-?-?-?-?-?- Effaced St Visit Note 09/07/21 -?-?-?-?-?-?-?-?-?-?-?-?- 11w 4d 220 lb 2 oz (+2 oz) 138/82 Negative -?-?-?-?-?-?-?-?-?-?-?-?- Negative 167 -?-?-?-?-?-?-?-?-?-?-?-?- JV- pt serg benjamin from COVID and has appt with Dr. Conn tomorrow. on baby asa. CRL consistent with LMP today and last visit. 10/08/21 -?-?-?-?-?-?-?-?-?-?-?-?- 16w 0d 216 lb 2 oz (-3 lb 14 oz) 150/78 134/86 Negative -?-?-?-?-?-?-?-?-?-?-?-?- Negative 150 -?-?-?-?-?-?-?-?-?-?-?-?- SM- no vb crampi ng. still struggling with BS, will need to start medicine. 11/05/21 -?-?-?-?-?-?-?-?-?-?-?-?- 20w 0d 211 lb 8 oz (-8 lb 8 oz) 134/78 Negative -?-?-?-?-?-?-?-?-?-?-?-?- Negative 150 -?-?-?-?-?-?-?-?-?-?-?-?- SM- no vb lof go od fm no reuglar ctx some increased discharge. culture sent 12/03/21 -?-?-?-?-?-?-?-?-?-?-?-?- 24w 0d 212 lb 4 oz (-7 lb 12 oz) 100/72 Negative -?-?-?-?-?-?-?-?-?-?-?-?- Negative 134 24 -?-?-?-?-?-?-?-?-?-?-?-?- JV- pt states is feeling much better and just has allergies. her insulin was recently increased. plan for twice weeklyNSTs at 32 weeks 01/13/22 -?-?-?-?-?-?-?-?-?-?-?-?- 29w 6d 212 lb 2 oz (-7 lb 14 oz) 128/70 Negative -?-?-?-?-?-?-?-?-?-?-?-?- Negative 146 30 -?-?-?--?-?-?-?-?-?-?-?-?- MH-No Vb, LOF. G ood FM. Glucose readings >50% WNL. Tdap, rhogam, larc. Will start NSTs twice wkly at 32 wk. Growth Q4w at 36. 02/02/22 -?-?-?-?-?-?-?-?-?-?-?-?- 32w 5d 217 lb 8 oz (-2 lb 8 oz) 130/78 Negative -?-?-?-?-?-?-?-?-?-?-?-?- Negative 130 -?-?-?-?-?-?-?-?-?-?-?-?- JV- reactive NST . roberto was 9.4 plan to rpt in office next week. 02/11/22 -?-?-?-?-?-?-?-?-?-?-?-?- 34w 0d 217 lb 2 oz (-2 lb 14 oz) 134/82 Negative -?-?-?-?-?-?-?-?-?-?-?-?- Negative 120 34 -?-?-?-?-?-?-?-?-?-?-?-?- JV- nst reactive . ROBERTO 17 today. no complaints today. 02/23/22 -?-?-?-?-?-?-?-?-?-?-?-?- 35w 5d 219 lb (-16 oz) 138/74 Negative -?-?-?-?-?-?-?-?-?-?-?-?- Negative 140 -?-?-?-?-?-?-?-?-?-?-?-?- MH-NST only reac tive 03/04/22 -?-?-?-?-?-?-?-?-?-?-?-?- 37w 0d 222 lb 2 oz (+2 lb 2 oz) 139/82 Negative -?-?-?-?-?-?-?-?-?-?-?-?- Negative 140 -?-?-?-?-?-?-?-?-?-?-?-?- JV- bp's startin g to rise more. plan for rpt section with BTL next monday. 03/11/22 -?-?-?-?-?-?-?-?-?-?-?-?- 38w 0d -?-?-?-?-?-?-?-?-?-?-?-?- -?-?-?-?-?-?-?-?-?-?-?-?- ROS Constitutional Constitutional: Denies change in weight, fatigue, fever(s), headache(s), poor appetite or weakness Eyes Eyes: Denies blurry vision, change in vision, seeing flashes or spots in vision ENT HEENT: Denies dizziness, headache(s), loss taste/smell or sore throat Cardiovascular Cardiovascular: Denies chest pain, dizziness, dyspnea, irregular heart rhythm, leg edema, palpitations, rapid heart rate or vomiting Respiratory/Chest Respiratory/Chest: Denies chest tightness, cough, dyspnea or breast pain Gastrointestinal Gastrointestinal: Denies abdominal pain, anorexia, constipation, cramping, diarrhea, hemorrhoids, vomiting or weight changes Genitourinary Genitourinary: Denies dysuria, flank pain, genital lesions, genital pain, urinary frequency or urinary urgency Musculoskeletal Musculoskeletal: Denies back pain, difficulty walking, joint pain, limited range of motion, muscle cramps or numbness Integumentary Integumentary: Denies lesions or unusual bruising Neurologic Neurologic: Denies abnormal movements, abnormal speech, dizziness, numbness, seizure-like activity or syncope Psychiatric Psychiatric: Denies anxiety, behavioral changes, change in appetite, change in libido, cognitive impairment, confusion, depression, difficulty concentrating, hallucinations or suicidal thoughts Endocrine Endocrinology: Denies excessive sweating, polydipsia or polyuria Hematologic/Lymphatic Hematologic/Lymphatic: Denies easy bleeding, easy bruising or lymphadenopathy Allergic/Immunologic Allergic/Immunologic: Denies itchy eyes, lip swelling, seasonal rhinorrhea, rhinitis, throat swelling, tongue swelling, eczemia, wheezing or asthma Physical Exam Const alert, oriented x3, no apparent distress and healthy appearing General Appearance: cooperative; Negative for anxious HEENT normocephalic Face and Sinus: normal facial exam Eyes EOMs intact bilaterally and no scleral icterus General Eye: normal appearance of both eyes Neck full ROM and supple Lymph Lymphatic: no lymphadenopathy noted Chest Chest: abnormal inspection of the chest Resp normal respiratory effort Effort and Inspection: able to speak in complete sentences Cardio regular rate GI soft to palpation and non-tender Inspection: gravid Palpation: soft; Negative for tender external exam normal Amniotic Fluid: ROM+plus Back/Spine no CVA tenderness Extremity normal to inspection, full ROM and no clubbing, cyanosis or edema General Extremity: Negative for calf tenderness or edema Skin Lesions: no lesions Rashes: no rashes Psych mental status grossly normal Labs Labs Labs: Blood Type A NEGATIVE Antibody Screen NEGATIVE Hct 32.0 % (37-47) L Hgb 11.0 g/dL (12.0-15.0) L Obstetrics US Syphilis Total Ab Non-reactive VZV IgG Antibody 1541 index (Immune >165) Rubella IgG Antibody Reactive (Nonreactive) Hep Bs Antigen Non-Reactive (Nonreactive) Chlamydia DNA (BELKIS) Negative (Negative) Neisseria gonorrhoeae DNA (BELKIS) Negative (Negative) HIV 1&2 Antibody Non-Reactive (Nonreactive) Glucose 1 Hr 50 gm 194 mg/dL (70-140) H Miscellaneous Test Assessment & Plan (1) Contraception management: QUALIFIERS: Contraceptive encounter type: other encounter for contraceptive management Qualified Code(s): Z30.8 - Encounter for other contraceptive management COMMENT: Wants BS with RCS (2) Nuchal fold thickening on ultrasound: COMMENT: needs to follow MFM in 2 weeks, 11/15 US nl, nl NIPT (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 optho cs ordered. tsh ordered. baseline labs. nutritional and endo referrals start twice weekly NST testing at 32 weeks (4) Anemia affecting : QUALIFIERS: Trimester: third trimester Qualified Code(s): O99.013 - Anemia complicating , third trimester COMMENT: iron added (5) COVID-19: COMMENT: baby ASA. (6) History of : COMMENT: first due to distress, 2nd elective(Benekos) plan RLTCS scheduled (7) Supervision of high risk , antepartum: COMMENT: PRR ALTAF: 03/25/22, [facility] PC: Suleiman Walter. Spouse: Kendall (8) : QUALIFIERS: Weeks of gestation: 37 weeks Qualified Code(s): Z3A.37 - 37 weeks gestation of COMMENT: NIPT low risk; declines carrier. afp negative. (9) Depression affecting : COMMENT: Currently on prozac. Used in past pregnancies. Lexapro and zoloft ineffective. Stable (10) Rh negative state in antepartum period: COMMENT: Rhogam PRN and 28 weeks (11) Hypertension: QUALIFIERS: Hypertension type: unspecified Qualified Code(s): I10 - Essential (primary) hypertension COMMENT: no med at present. Cozaar in past. No HTN with past pregnancies. on baby asa. baseline labs ordered. EKG nl. (12) AMA (advanced maternal age) multigravida 35+: QUALIFIERS: Trimester: third trimester Qualified Code(s): O09.523 - Supervision of elderly multigravida, third trimester COMMENT: growth US at 36 weeks PLAN: Plan plan for repeat section with bilateral tubal ligation. Will decide on i nsulin dose after surgery based on 2 hr pp blood sugars and likely start sliding scale.
[2022-03-11] MEDS: Lactated Ringers 1,000 ML 999 ML IV (10:19)
[2022-03-11 10:24] LABS: Absolute Lymphocyte Count 1.43 X10^3/uL (0.83-4.51); Absolute Neutrophil Count 5.1 X10^3/uL (2.0-7.7); Basophil# 0.02 X10^3/uL; Basophil% 0.3 % (0-1); Eosinophil# 0.12 X10^3/uL; Eosinophils% 1.7 % (0-5); Hematocrit 29.5 % (37-47); Hemoglobin 10.3 g/dL (12.0-15.0); Lymphocyte # 1.43 X10^3/ul (0.83-4.51); Lymphocyte % 19.8 % (19-41); Mean Corp Hgb Conc 34.9 g/dL (32-36); Mean Corpuscular Hgb 30.4 pg (27.0-32.0); Mean Platelet Vol. 11.9 fl (6.2-12.0); Monocyte% 6.9 % (0-10); NRBC Flagged by Analyzer 0 % (0-5); Neutrophil # 5.09 X10^3/uL (2.7-7.7); Neutrophil % 70.6 % (47-70); Platelet Count 151 K/mm3 (150-450); RBC Distribution Width SD 43.3 fl (35.1-43.9); Red Blood Count 3.39 M/mm3 (4.2-5.4); White Blood Count 7.2 K/mm3 (4.4-11.0)
[2022-03-11 10:35] LABS: Bedside Glucose 90 mg/dL (74-106)
[2022-03-11] MEDS: Acetaminophen 500 MG Tablet 1000 MG PO ×3 (10:58→23:35)
[2022-03-11] MEDS: Lactated Ringers 1,000 ML 150 ML IV (11:21)
[2022-03-11] MEDS: Sodium Citrate/Citric Acid 30 ML UDC PO (11:51)
[2022-03-11] MEDS: Cefazolin 2 GM in 0.9% Normal Saline 100 ML IV (11:57)
--- NOTE | 2022-03-11 12:28 | FALS_PTH ---
PATIENT: JAY BRADLEY LOC: WP U#:[id number] AGE/SX: 41/F ROOM: [facility] RE03/11/[address]: Dr. Funmilayo Nugent DO : 1980 BED: 1 DIS: 03/12/2022 SPEC #: [id number] RECD: 03/11/22 14:06 STATUS: [facility] #: [id number] HADLEY: 03/11/22 12:[address]: Funmilayo Nugent DEPT: SURGICAL PATHOLOGY RECD BY: Grabiel Heck ENTERED: 03/14/22 06:47 SP TYPE: FALL TUBES OTHR DR: Dr. Yanique Zarate MD Tissues: Fallopian tube Procedures: Surgery Specimen Level II HEADER OPERATION: Tubal ligation PRE-OP DIAGNOSIS: Sterilization TISSUE SUBMITTED: Fallopian tubes, suture in right tube MICROSCOPIC DIAGNOSIS Bilateral fallopian tubes, salpingectomy: Bilateral fallopian tubes, no pathologic diagnosis. MARGUERITE:tiffany 03/15/2022 MICROSCOPIC DESCRIPTION Slides are reviewed. GROSS DESCRIPTION Received in fixative is one container labeled with the patient's name and designated bilateral fallopian tubes, suture in right tube. The specimen consists of bilateral fallopian tubes including fimbrial ends. The right fallopian tube measures 6 cm in length and 0.6 cm in diameter and left fallopian tube measures 5 cm in length and up to 1 cm in diameter. Sections reveal unremarkable cut surfaces. [employer] sections are submitted in two cassettes as follows: 1 ? right fallopian tube, 2 ? left fallopian tube. / MARGUERITE:tiffany 03/14/2022 TC:4 CPT: 78948 x2
[2022-03-11] MEDS: Oxytocin 30 units/NS 500 ml 30 UNITS/500 ML IV.SOLN 167 UNITS IV (13:20)
--- NOTE | 2022-03-11 13:24 | EX.PCM.OBRPT ---
Assessment & Plan (1) Nuchal fold thickening on ultrasound: COMMENT: needs to follow MFM in 2 weeks, 11/15 US nl, nl NIPT (2) Modified White class B pregestational diabetes mellitus: COMMENT: diagnosed 1 tm. optho cs ordered. tsh ordered. baseline labs. nutritional and endo referrals start twice weekly NST testing at 32 weeks (3) Anemia affecting : QUALIFIERS: Trimester: third trimester Qualified Code(s): O99.013 - Anemia complicating , third trimester COMMENT: iron added (4) COVID-19: COMMENT: baby ASA. (5) History of : COMMENT: first due to distress, 2nd elective(Benekos) plan RLTCS scheduled (6) Supervision of high risk , antepartum: COMMENT: PRR ALTAF: 03/25/22, [facility] PC: Suleiman Walter. Spouse: Kendall (7) : QUALIFIERS: Weeks of gestation: 37 weeks Qualified Code(s): Z3A.37 - 37 weeks gestation of COMMENT: NIPT low risk; declines carrier. afp negative. (8) Rh negative state in antepartum period: COMMENT: Rhogam PRN and 28 weeks (9) Depression affecting : COMMENT: Currently on prozac. Used in past pregnancies. Lexapro and zoloft ineffective. Stable (10) Hypertension: QUALIFIERS: Hypertension type: unspecified Qualified Code(s): I10 - Essential (primary) hypertension COMMENT: no med at present. Cozaar in past. No HTN with past pregnancies. on baby asa. baseline labs ordered. EKG nl. (11) AMA (advanced maternal age) multigravida 35+: QUALIFIERS: Trimester: third trimester Qualified Code(s): O09.523 - Supervision of elderly multigravida, third trimester COMMENT: growth US at 36 weeks Maternal Data Information ALTAF Calculator Estimated Delivery Date Method Current WG Current Estimate 03/25/22 LMP (Certain) 38w 0d Other Estimates 03/25/22 Ultrasound #1 38w 0d 03/19/22 Ultrasound #2 38w 6d Final ALTAF: 03/25/22 Final ALTAF Source: US <20 weeks Gestational age: 38 weeks 0 days Details Operative Information Date of Procedure: 03/11/22 Pre-Operative Diagnosis: GDMB, Hypertension, Advanced maternal age, 38 weeks gestation and a history of prior section x 2, desires permanent sterilization Post-Operative Diagnosis: GDMB, Hypertension, Advanced maternal age, 38 weeks gestation and a history of prior section x 2, desires permanent sterilization Indications for : Desires elective sterilization Classification: Scheduled Procedure Type: low transverse (with bilateral salpingectomy ) college football coach #1: Brandi Petty Type of Anesthesia: Spinal Antibiotic Given: Ancef 2 grams IV x1 Estimated Blood Loss: 700cc Findings Description of Procedure: The patient is a 41 y/o presented for repeat . Spinal anesthesia was placed without difficulty. Hunter catheter was placed. The patient was placed in the dorsal supine position with leftward tilt. Patient was prepped and draped in the normal sterile fashion. Pfannenstiel skin incision was made with the scalpel and carried through to the underlying layer of fascia with the scalpel. Fascia was nicked in the midline and the incision extended laterally. The rectus bellies were dissected off superiorly and inferiorly with out complication both sharply and bluntly. The peritoneum was entered digitally. The incision was stretched and a low transverse uterine incision was made with the scalpel. The 's head was delivered atraumatically followed by the anterior and posterior shoulders without complication the rest of the infant delivered. The cord was clamped and cut and the was handed off to awaiting nurse. The placenta was delivered spontaneously immediately following and was noted to be intact and have a three-vessel cord. The uterus was exteriorized cleared of all clots and debris, and the incision was closed in a double layer closure using #1 vicryl and #1 Monocryl. The ovaries and fallopian tubes were noted to be within normal limits. The fallopian tubes were removed completely and passed off for pathology analysis. The uterus was returned to the maternal abdomen and gutters were cleared of all clots and debris. The bilateral salpingectomy procedure was performed next, starting from the fimbriated ends, the mesosalpinx was cauterized and cut to the level of the cornua. The peritoneum was closed with 3-0 Monocryl in a running fashion. Gloves were changed prior to fascial closure. Fascia was closed with 0 PDS in a running fashion. Subcutaneous tissue was copiously irrigated and the skin was closed with 3-0 Monocryl in a subcuticular fashion. Mepilex dressing was applied without complication. Patient was taken to recovery in stable condition. Presentation: Positive for Vertex Amniotic Fluid Description: Clear Placental Delivery Description: Manual Removal Placenta Disposition: [facility] Cord Entanglement: None A Gender: Male (1 minute): 9 (5 minute): 9 Delayed Cord Clamping: Yes Complications Risks of Surgery Discussed w/Patient: Bleeding, Anesthesia Risks, Infection, Need for Future C-Sections, Permanency, Failure Rate of 1 to 2%, Injury to surrounding structure(s) including bowel and bladder and Availability of other non-permanent control options Complications: none Multi Select Codes Urinary/Genital Urinary/Genital CPT Codes: 74724 C/S+TL (bilateral salpingectomy ) and 38568 Delivery global pkg (with bilateral salpingectomy)
[2022-03-11] MEDS: Ketorolac 30 MG/ML Syringe IV ×2 (13:47→20:28)
[2022-03-11] MEDS: 0.9% Saline Lock 10 ML Syringe IV (13:47)
[2022-03-11 14:04] LABS: Pathology Specimen OB SEE PATHOLOGY REPORT
[2022-03-11 14:31] LABS: Bedside Glucose 98 mg/dL (74-106)
--- NOTE | 2022-03-11 14:46 | NURSING ---
ligasure lot# [id number] use by 09/07/2026
--- NOTE | 2022-03-11 15:11 | CPS ---
Patient occupied with baby, IS left in room with patient, RN was notified to teach
[2022-03-11] MEDS: Lactated Ringers 1,000 ML 100 ML IV (16:43)
[2022-03-11 18:11] LABS: Bedside Glucose 176 mg/dL (74-106)
[2022-03-11] MEDS: Insulin NPH Human 100 UNITS/ML PEN 10 UNITS SC (18:47)
[2022-03-11] MEDS: NIFEdipine 30 MG Tablet PO (18:48)
[2022-03-11] MEDS: Enoxaparin 40 MG/0.4 ML Syringe SC (23:55)
[2022-03-12] MEDS: Ketorolac 30 MG/ML Syringe IV ×2 (02:46→09:12)
[2022-03-12] MEDS: 0.9% Saline Lock 10 ML Syringe IV ×2 (02:46→09:14)
[2022-03-12 05:00] VITALS: BP 121/71; PULSE 63; RESP 16; TEMP 36.7; O2SAT 96
[2022-03-12] MEDS: Acetaminophen 500 MG Tablet 1000 MG PO ×2 (05:02→12:38)
[2022-03-12 05:22] LABS: Hematocrit 26.4 % (37-47); Hemoglobin 8.9 g/dL (12.0-15.0); Mean Corp Hgb Conc 33.7 g/dL (32-36); Mean Corpuscular Volume 88.9 fL (81-99); Mean Platelet Vol. 11.6 fl (6.2-12.0); Platelet Count 158 K/mm3 (150-450); RBC Distribution Width CV 13.8 % (11.6-14.6); RBC Distribution Width SD 44.7 fl (35.1-43.9); Red Blood Count 2.97 M/mm3 (4.2-5.4); White Blood Count 11.3 K/mm3 (4.4-11.0)
[2022-03-12 06:45] LABS: Bedside Glucose 85 mg/dL (74-106)
[2022-03-12] MEDS: Insulin NPH Human 100 UNITS/ML PEN SC (08:25)
[2022-03-12 08:28] VITALS: BP 119/77; PULSE 69; RESP 17; TEMP 36.3; O2SAT 98
--- NOTE | 2022-03-12 10:13 | PCM.PN.OB ---
Subjective Subjective Patient is laying in bed comfortably without complaints. She states that she slept on an off during the night. Lochia is mild and pain is minimal. Objective Data Objective Data Vital Signs: Vital Signs Temp Pulse Resp BP Pulse Ox 97.4 F L 69 17 119/77 98 03/12/22 08:28 03/12/22 08:28 03/12/22 08:28 03/12/22 08:28 03/12/22 08:28 Oxygen Delivery Method Room Air Weight: 223 lb 8.78 oz Body Mass Index (BMI) 34.9 Intake & Output: Intake and Output for Last 24 Hours 03/10/22 03/11/22 03/12/22 23:59 23:59 23:59 Intake Total 3495 / 3495 Output Total 1100 / 1100 500 / 500 Balance 2395 / 2395 -500 / -500 Lab / Micro Data Result Diagrams: 03/12/22 05:17 Labs: Laboratory Results - last 24 hr 03/11/22 10:15: WBC 7.2, RBC 3.39 L, Hgb 10.3 L, Hct 29.5 L, MCV 87.0, MCH 30.4, MCHC 34.9, RDW Std Deviation 43.3, RDW Coeff of Bob 14.0, Plt Count 151, MPV 11.9, Immature Gran % (Auto) 0.700, Neut % (Auto) 70.6 H, Lymph % (Auto) 19.8, [place] % (Auto) 6.9, Eos % (Auto) 1.7, Baso % (Auto) 0.3, Absolute Neuts (auto) 5.1, Absolute Lymphs (auto) 1.43, Nucleated RBC % 0 03/11/22 10:15: Blood Type A NEGATIVE, Antibody Screen TNP, Antibody Identification Cancelled 03/11/22 10:15: Antibody Screen NEGATIVE 03/11/22 10:26: POC Glucose 90 03/11/22 13:56: POC Glucose 98 03/11/22 15:30: Screen NEGATIVE, Baby's Blood Type A POSITIVE, Baby's ANTOINE NEGATIVE 03/11/22 18:00: POC Glucose 176 H 03/12/22 05:17: WBC 11.3 H, RBC 2.97 L, Hgb 8.9 L, Hct 26.4 L, MCV 88.9, MCH 30.0, MCHC 33.7, RDW Std Deviation 44.7 H, RDW Coeff of Bob 13.8, Plt Count 158, MPV 11.6 03/12/22 06:39: POC Glucose 85 ROS Constitutional Constitutional: Reports systems reviewed and no addt'l complaints, except as documented Cardiovascular Cardiovascular: Denies chest pain, dizziness, dyspnea or irregular heart rhythm Respiratory/Chest Respiratory/Chest: Denies cough, pain on inspiration or shortness of breath at rest Gastrointestinal Gastrointestinal: Denies abdominal pain, nausea or vomiting Genitourinary Genitourinary: Denies burning urination Musculoskeletal Musculoskeletal: Denies muscle cramps, muscle spasms or muscle weakness Neurologic Neurologic: Denies confusion, dizziness, headache(s) or lack of coordination Psychiatric Psychiatric: Denies anxiety, behavioral changes or depression Physical Exam HEENT normocephalic Resp normal respiratory effort and normal air movement GI soft to palpation, non-tender and non-distended Rectal Exam: other Other Details: Incision is clean, dry, and intact no CVA tenderness Extremity normal to inspection General Extremity: edema bilateral (trace ) Assessment & Plan (1) Status post section: COMMENT: baby luma Rankin rpt cs and bilateral salpingectomy - JV on 03/11/22 (2) Modified White class B pregestational diabetes mellitus: COMMENT: diagnosed 1 tm. optho cs ordered. tsh ordered. baseline labs. nutritional and endo referrals start twice weekly NST testing at 32 weeks -post home with 10 NPH at bedtime and 5 with breakfast - follow up with endo in 6 weeks PLAN: Plan s/p LTCS PPD # 1- Pt wants to go home today if possible 1. routine post care 2. breast feeding- support given 3. rh positive 4. rubella immune
--- NOTE | 2022-03-12 10:16 | PCM.DC ---
Discharge Instructions Diet Discharge Diet: No restrictions Activity Discharge Activity: May Not Drive (for 2 weeks or while taking narcotic pain medications.), May Shower and May Take a Tub Bath (in 7 days.) May resume sexual activity in: 4-6 weeks Weight Bearing Status: Full weight bearing Lifting Restrictions: 20 pounds Dressing / Incision Call your doctor if your incision/area has: Continuous Slow Oozing, Sudden Increased Bleeding, Increased Pain/ Swelling, Increased Redness and Foul Smelling Discharge Call your doctor if you observe: Fever of 101 or Higher and Using more than 1 pad per hour Suture Line Care: Avoid Pulling/Pushing and Avoid Pinching/Bending Cleanse incision/area with: Soap & Water and Keep Dressing Clean & Dry Follow Up Care Please Follow Up With: Funmilayo Nugent DO When: Call [phone] to make an appointment for an incision check in 1-2 weeks. Test Results: Test results from this visit will be discussed in further detail at your follow-up appointment, if applicable. Discharge Plan Admission Admit Date/Time: 03/11/22 10:07 Primary Reason for Your Visit: section and bialteral salpingectomy (tubal sterilization) Attending Provider: Funmilayo Nugent Primary Care Provider: Yanique Zarate Discharge Orders/Prescriptions Prescriptions: New ibuprofen 600 mg tablet 600 mg PO Q6H PRN (Reason: moderate pain (scale score 5-6)) 7 Days Qty: 30 0RF oxycodone-acetaminophen [Percocet] 5-325 mg tablet 1 tab PO Q4H PRN (Reason: severe pain (scale score 7-10)) 7 Days Qty: 30 0RF nifedipine [Procardia XL] 30 mg tablet extended release 24hr 30 mg PO DAILY Qty: 30 3RF Rx Instructions: take at 7 pm daily Novolin N NPH U-100 Insulin 100 unit/mL suspension 5 unit subcut DAILY 30 Days Qty: 1.5 3RF Rx Instructions: take 5 units with breakfast and 10 units at bedtime Continued prenat.vits,steve,[id number] Tablet 1 tab PO DAILY fluoxetine [Prozac] 40 mg capsule 40 mg PO DAILY Discontinued aspirin 81 mg tablet,delayed release (DR/EC) 81 mg PO DAILY No Action (DME) blood-glucose meter [Truetrack Blood Glucose System] Kit See Rx Instructions .ROUTE .MEDSUHealcerion Qty: 1 0RF Rx Instructions: As directed (DME) Truetrack Test Strip See Rx Instructions .[email or web address] Qty: 100 4RF Rx Instructions: QID (check fasting and 2 hr pp) Referrals / Follow Up: Yanique Zarate MD [Primary Care Provider] - Disposition Disposition (needs filled in before D/C Order can be placed): Home, Self Care
[2022-03-12] MEDS: Senna/Docusate Sodium 1 Tablet PO (11:02)
[2022-03-12 11:15] LABS: Bedside Glucose 81 mg/dL (74-106)
[2022-03-12 12:39] VITALS: BP 148/75; PULSE 78; RESP 17; TEMP 36.8
--- NOTE | 2022-03-12 13:15 | CASEMGMT ---
Addendum entered by Renata Mar 03/12/22 16:59: MOB was appropriate during assessment and maintained appropriate eye contact. MOB holding baby during assessment. Addendum entered by Renata Mar 03/12/22 14:23: Correction: Apgars 9/9 Addendum entered by Renata Mar 03/12/22 13:32: Pt voiced understanding about Shaken Baby, PPD, and Safe Sleeping. Original Note: Social Work Assessment Reason for Referral: Hx of Depression Informant: DO Mom: Erin Valles G/P: PNC: [place] Control: Tubal Permanent Sterilization Baby: Pt is a Boy and his name is Chucho : 03/11/2021 Apgars: 9 Weight: 7lbs 2 oz Electrician Powerhouse: 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 Financial: Pt states she has no financial concerns Agency Involvement: Pt states none Mental Health History: Pt states history of Depression and Anxiety. Pt states that she takes Prozac 40mg. Pt states that she feels her Anxiety and Depression are well managed. Pt states that she used to be in marriage counseling but denied any current counseling. Pt states no concerns with the marriage and no Domestic Violence Concerns. Pt scored 0 on PHQ2 and for Suicidal screening pt answered no to any thoughts of killing herself or others. Pt states no history of Post Depression. AOD History: Never smoker. Pt states she will drink ETOH socially, states she did not drink ETOH while . Pt denied any other substance use. FOB: Fob is Kwame Long Time together: Pt states long time. Involved at : MOB states that Kwame will be involved with the baby Employment: MOB states Kwame works for the [employer] [facility] Hx: MOB reports FOB has Anxiety and Depression. MOB reports FOB is on Celexa. FOD AOD History: Pt did not identify any concerns. Pt states she has received education on Shaken Baby, PPD, and Safe Sleeping. SW provided pt with resources for Shaken Baby, PPD, and Safe Sleeping. Pt denied additional needs or concerns at this time. Plan: Home with support from pt's and family Renata Mar BRYOLOGIST, SSN/SSBN ASSISTANT NAVIGATOR
[2022-03-12] MEDS: Ibuprofen 600 MG Tablet PO (15:51)
== END 2022-03-12 16:05 | disposition home or self-care (01) | DRG 783 ==
PROVIDERS: Admitting Provider Obstetrics & Gynecology; PCP Family Medicine; Visit Provider Obstetrics & Gynecology
PROC: 0UT70ZZ Resection of Bilateral Fallopian Tubes, Open Approach (ICD-10-PCS; CPT 59514; principal; 2022-03-11 11:45)
DX: O34.211 Maternal care for low transverse scar from previous cesarean delivery (principal); O24.12 Pre-existing type 2 diabetes mellitus, in childbirth; O10.02 Pre-existing essential hypertension complicating childbirth; Z79.4 Long term (current) use of insulin; Z30.2 Encounter for sterilization; Z3A.38 38 weeks gestation of pregnancy; O99.02 Anemia complicating childbirth; O99.344 Other mental disorders complicating childbirth; F32.A Depression, unspecified; O26.893 Other specified pregnancy related conditions, third trimester; Z67.11 Type A blood, Rh negative; Z37.0 Single live birth; Z79.82 Long term (current) use of aspirin; Z79.899 Other long term (current) drug therapy; Z28.310 Unvaccinated for COVID-19; Z28.9 Immunization not carried out for unspecified reason; Z87.59 Personal history of other complications of pregnancy, childbirth and the puerperium; Z86.16 Personal history of COVID-19
CPT/HCPCS: 59050; 82962; 85025; 85027; 85461; 86850; 86870; 86900; 86901; 88302; 90384; 99218; 99251; J7120; A4216; G0378; G0463; J2790